=== PATIENT | female | born 1950 | race Caucasian/White ===

== ENCOUNTER 2020-01-18 10:08 | Outpatient (CLI) | payer OTHER ==
[~2020-01-18 10:08] MED LIST: ALEVE220 M1 PO; CEFADROXIL500 MG PO; KETO10TA2 PO
== END 2020-01-18 10:15 | disposition home or self-care (01) ==
LOC: NUCLEAR 10:08
PROVIDERS: ATTEND Internal Medicine
DX: I87.2 Venous insufficiency (chronic) (peripheral) (principal)

== ENCOUNTER 2020-07-29 15:36 | Outpatient (CLI) | payer OTHER | END 2020-07-29 16:26 | disposition home or self-care (01) | LOC: OFIC 805 15:36 | PROVIDERS: ATTEND Otolaryngology Otology & Neurotology | DX: H90.3 Sensorineural hearing loss, bilateral (principal) ==